=== PATIENT | female | born 1995 | race Asian ===

== ENCOUNTER 2020-11-02 01:10 | Emergency (ER) | payer SELFPAY ==
[~2020-11-02] VITALS: Ht 157.5 cm; Wt 53.9 kg
[2020-11-02 01:11] VITALS: BP 127/92
[2020-11-02] MEDS ORDERED: FLUORESCEIN OPHTHALMIC 1 MG STRIP ONE (01:24)
--- NOTE | 2020-11-02 01:24 | NUR ---
INITIAL CONTACT WITH PT. ASSESSMENT DONE. PT HAS BEEN SEEN BY .
[2020-11-02] MEDS ORDERED: PROPARACAINE OPHTH 0.5%, 15ML ONE (01:25)
[2020-11-02] MEDS ORDERED: PROPARACAINE OPHTH 0.5%, 15ML EACHEYE ONE (02:00)
[2020-11-02] MEDS ORDERED: FLUORESCEIN OPHTHALMIC 1 MG STRIP EACHEYE ONE (02:00)
--- NOTE | 2020-11-02 02:00 | NUR ---
PT DC'D HOME WITH RX X 1 AND UNDERSTANDING OF INSTRUCTIONS. PT AND FAMILY MEMBER ESCORTED TO DC DESK, PT GAIT STEADY.
== END 2020-11-02 02:03 | disposition home or self-care (01) ==
LOC: ED 02:00
DX: T15.01XA Foreign body in cornea, right eye, initial encounter (principal); T15.11XA Foreign body in conjunctival sac, right eye, initial encounter; X58.XXXA Exposure to other specified factors, initial encounter; Y93.89 Activity, other specified; Y92.89 Other specified places as the place of occurrence of the external cause; Y99.8 Other external cause status
CPT/HCPCS: 65222; 99284